=== PATIENT | male | born 1950 | race Caucasian/White ===

== ENCOUNTER 2020-06-25 06:36 | Day surgery (SDC) | payer OTHER ==
--- NOTE | 2020-06-21 12:38 | RAD REPORT ---
EXAM DESCRIPTION: Marissa John And Reagan (2 Views)06/21/2020 12:25 pm CLINICAL HISTORY: Preop for cardiac catheterization. Hypertension COMPARISON: None FINDINGS: The lungs appear clear of acute infiltrate. The heart is mildly enlarged. Lungs are mildly moderately hyperaerated IMPRESSION: No acute abnormalities displayed
[2020-06-21 13:07] LABS: Absolute Lymphocytes (CBC) 1.7 K/uL (0.7-4.9); Lymphocytes % 16.5 % (15.3-44.8); MPV 8.4 fL (7.6-11.3); RBC Red Blood Cell Count 3.69 M/uL (4.33-5.43)
[2020-06-21 13:27] LABS: Potassium 5.4 mmol/L (3.5-5.1)
[2020-06-21 13:32] LABS: Protime INR 0.91
[2020-06-25] MEDS ORDERED: LIDOCAINE 1% 20 ML MDV ONE (07:05)
[2020-06-25] MEDS ORDERED: HEPA 1000U/500MLS 1,000 UNIT/500 ML BAG IV ONE (07:05)
[2020-06-25] MEDS ORDERED: NA CHLORIDE 0.9% 500 ML ONE (07:09)
[2020-06-25] MEDS ORDERED: FENTANYL CITR 100 MCG/2 ML ONE (07:33)
[2020-06-25] MEDS ORDERED: MIDAZOLAM HCL 2 MG/2 ML INJ ONE (07:33)
[2020-06-25] MEDS ORDERED: ATROPINE SULF 1 MG/10 ML SYR IV ONE (07:33)
[2020-06-25] MEDS ORDERED: NA CHLORIDE 0.9% 0 ML ONE (07:33)
[2020-06-25 09:42] VITALS: BP 123/61; TEMP 97; O2SAT 100
--- NOTE | 2020-06-25 14:26 | OP ---
Surgeon: Thomas Villegas MD Grapple Crew Leader: Mr. Jordan Dickinson. Indication: The patient is a patient of Ms. Abbie Mendez. He was seen in my office as an outpatient for atypical chest pain. Has high blood pressure and cholesterol. Had a positive stress test. Procedure In Detail: Brought to the photo lab technician today as an outpatient. He was prepped and draped in t he routine sterile fashion. Given Versed for sedation. A 6-Kittitian sheath introduced in the right co mmon femoral artery successfully using the Seldinger technique and 10 cc Xylocaine. Angiography ther e showed a stenosis in the common femoral artery that is asymptomatic. StarClose was used to close t he case. Ammy catheter left and right were used to cannulate the left main and the right main res pectively. He had a normal left main, normal LAD, normal obtuse marginal 1. He had 100% distal circ umflex stenosis, which was small and nondominant with collateral to it from the RCA. The RCA was fady y large, dominant with minor plaquing. There were no complications. The patient tolerated the proce dure well. Blood Loss: 5 mL. Anesthesia: Total conscious sedation was 45 minutes. Postoperative Diagnosis: Moderate coronary artery disease. Plan: For medical therapy. The patient will remain in the hospital for 2 hours of bedrest after the StarClose and he will go home after that and see me in the office in 2 weeks. NEEMA/FELIPE Voice ID: [id number] Report ID: [id number]
== END 2020-06-25 09:48 | disposition home or self-care (01) ==
LOC: CCL 06:36
DX: I25.10 Atherosclerotic heart disease of native coronary artery without angina pectoris (principal); I25.82 Chronic total occlusion of coronary artery; I10 Essential (primary) hypertension; E78.5 Hyperlipidemia, unspecified; F17.200 Nicotine dependence, unspecified, uncomplicated; Z88.8 Allergy status to other drugs, medicaments and biological substances; Z20.822 Contact with and (suspected) exposure to COVID-19
CPT/HCPCS: 93005; 85025; 80048; 36415; 85610; 85730; 71046; 93454; U0003; C1893; C1760; J2250; J3010; J7040; J1644; J0583